=== PATIENT | female | born 1980 | race African-American/Black ===

== ENCOUNTER 2017-03-10 08:51 | Emergency (ER) | payer MEDICARE, MEDICAID ==
[~2017-03-10] VITALS: Ht 160 cm; Wt 111.0 kg
[~2017-03-10 08:51] MED LIST: AMBIEN; CIPRO; HYDR-4005 PO; [UNRECOGNIZED DRUG - REMARK]
[2017-03-10] MEDS ORDERED: ACETAMINOPHEN WITH CODEINE 300/30MG TABLET PO STA (09:28)
[2017-03-10] MEDS ORDERED: SODIUM CHLORIDE 0.9% 1,000 ML IV ONE (09:28)
[2017-03-10 10:03] LABS: BASOPHILS % 0.6 % (0.0-2.0); EOSINOPHILS % 1.7 % (0.0-5.0); HEMATOCRIT. 39.1 % (36.0-48.0); HEMOGLOBIN. 13.1 g/dL (12.0-16.0); LYMPHOCYTES % 36.7 % (20.0-50.0); MEAN CORPUSCULAR HEMOGLOBIN 33.7 pg (28.0-32.0); MEAN CORPUSCULAR VOLUME 100.2 fL (81.0-99.0); MEAN PLATELET VOLUME 8.4 fl (7.4-10.4); MONOCYTES % 5.7 % (2.0-8.0); NEUTROPHILS % 55.3 % (40.0-76.0); PLATELET 228 x1000/uL (130-400); RED CELL DISTRIBUTION WIDTH 15.3 % (11.6-14.6)
[2017-03-10 10:09] LABS: D-DIMER 0.27 mg/L FEU (<0.50); PROTHROMBIN TIME 10.3 sec (9.4-11.6)
[2017-03-10 10:13] LABS: CARBON DIOXIDE 31 mEq/L (21-32); CHLORIDE 105 mEq/L (98-107); TROPONIN I < 0.02 ng/mL (0.00-0.04)
[2017-03-10] MEDS ORDERED: DIPHENHYDRAMINE 25MG CAPSULE PO ONE (10:15)
[2017-03-10 11:27] VITALS: BP 145/94
== END 2017-03-10 12:21 | disposition home or self-care (01) ==
LOC: ER 08:51
DX: R07.9 Chest pain, unspecified (principal); E11.9 Type 2 diabetes mellitus without complications; I12.9 Hypertensive chronic kidney disease with stage 1 through stage 4 chronic kidney disease, or unspecified chronic kidney disease; N18.9 Chronic kidney disease, unspecified; Z85.41 Personal history of malignant neoplasm of cervix uteri; Z92.21 Personal history of antineoplastic chemotherapy
CPT/HCPCS: 36415; 71010; 80053; 81025; 84484; 85025; 85379; 85610; 93005; 96360; 96361; 99285; J7030; Q0163